=== PATIENT | female | born 1945 | race Caucasian/White ===

== ENCOUNTER → 2017-04-30 | Outpatient (CLI) | payer MEDICARE, OTHER | LOC: M.RAD 13:54 | DX: Z12.31 Encounter for screening mammogram for malignant neoplasm of breast (principal) ==

== ENCOUNTER → 2018-07-22 | Outpatient (CLI) | payer MEDICARE, OTHER | LOC: M.RAD 14:51 | DX: Z12.31 Encounter for screening mammogram for malignant neoplasm of breast (principal) ==

== ENCOUNTER → 2020-06-01 | Outpatient (CLI) | payer MEDICARE, OTHER | LOC: M.RAD 10:06 | DX: Z12.31 Encounter for screening mammogram for malignant neoplasm of breast (principal) ==